=== PATIENT | male | born 1940 | race Caucasian/White ===

== ENCOUNTER 2022-07-02 17:26 | Inpatient (IN) ==
[2022-07-02 19:12] LABS: Basophils % 0.2 % (0.0-0.8); Eosinophils # 0.1 10*3/uL (0.0-0.87); Eosinophils % 1.1 % (0.00-10.9); Hematocrit 36.7 VOL% (42.0-52.0); Hemoglobin 12.1 GM/DL (14.0-18.0); Immature Granulocytes % 0.3 %; Immature Granulocytes Absolute 0.03 #; Lymphocytes # 1.3 10*3/uL (1.4-4.0); Lymphocytes % 12.1 % (21.2-54.2); Mean Corpuscular Volume 95.6 FL (87-102); Mean Platelet Volume 11.7 FL (9.6-12.0); Monocytes # 1.1 10*3/uL (0.11-0.8); Monocytes % 10.2 % (1.7-12.7); Neutrophils % 76.1 % (38.7-73.9); Platelet Count 109 T/CUMM (130-400); Red Blood Count 3.84 MC/CUMM (3.8-5.5); Red Cell Distribution Width 14.6 % (9.3-17.3); White Blood Count 10.5 T/CUMM (4-12)
[2022-07-02 19:20] LABS: INR 1.2; PT Patient Result 13.2 SECS (10.1-12.1)
[2022-07-02 19:25] LABS: Albumin 3.1 G/DL (3.4-5.0); Bilirubin,Total 1.4 MG/DL (0.20-1.00); Calcium 9.5 MG/DL (8.5-10.1); Osmolality,Calculated 288.3 MOS/KG (273-304); Potassium 4.2 MMOL/L (3.5-5.1); Total Protein 6.8 G/DL (6.4-8.2)
[2022-07-02] MEDS ORDERED: ACETAMINOPHEN 500 MG TABLET ONE (20:58)
[2022-07-02] MEDS ORDERED: ACETAMINOPHEN 500 MG TABLET PO STA (21:11)
[2022-07-02] MEDS ORDERED: GLUCAGON 1 MG VIAL IM PRN (21:16)
[2022-07-02] MEDS ORDERED: ONDANSETRON 4 MG/2 ML VIAL IV PRN (21:16)
[2022-07-02] MEDS ORDERED: DEXTROSE 10% 250 ML BAG IV PRN (21:21)
[2022-07-02] MEDS ORDERED: SODIUM CHLORIDE 0.9% 1,000 ML IV SCH (21:30)
[2022-07-03 00:25] LABS: Bacteria,Urine Occasional /HPF (Few); Hyaline Casts,Urine 15 /LPF (0-3); Mucus,Urine Few /LPF (Occasional); RBC,Urine 79 /HPF (0-4)
[2022-07-03 00:26] LABS: Glucose,Urine (UA) Negative (Negative); Ketones,Urine Negative (Negative); Protein,Urine 30 mg/dL (Negative); Urine Appearance SL CLOUDY (Clear); Urine Color Yellow (Yellow); Urine pH 6.5 (4.5-8.0)
[2022-07-03 00:27] LABS: Bilirubin,Urine Negative (Negative); Blood, Urine Moderate mg/dL (Negative); Nitrite,Urine Negative (Negative)
[2022-07-03 01:44] LABS: INR 1.2; PT Patient Result 13.5 SECS (10.1-12.1)
[2022-07-03 02:07] LABS: Basophils % 0.2 % (0.0-0.8); Eosinophils # 0.1 10*3/uL (0.0-0.87); Hematocrit 35.9 VOL% (42.0-52.0); Hemoglobin 11.9 GM/DL (14.0-18.0); Immature Granulocytes % 0.3 %; Immature Granulocytes Absolute 0.03 #; Lymphocytes # 1.3 10*3/uL (1.4-4.0); Lymphocytes % 13.5 % (21.2-54.2); Mean Corpuscular HGB Conc 33.1 GM/DL (32-36); Mean Corpuscular Volume 95.5 FL (87-102); Mean Platelet Volume 11.6 FL (9.6-12.0); Monocytes # 0.9 10*3/uL (0.11-0.8); Monocytes % 9.5 % (1.7-12.7); Neutrophils % 75.5 % (38.7-73.9); Platelet Count 120 T/CUMM (130-400); Red Blood Count 3.76 MC/CUMM (3.8-5.5); Red Cell Distribution Width 14.5 % (9.3-17.3); White Blood Count 9.5 T/CUMM (4-12)
[2022-07-03 02:22] LABS: Bilirubin,Total 1.4 MG/DL (0.20-1.00); Calcium 9.3 MG/DL (8.5-10.1); Osmolality,Calculated 285.4 MOS/KG (273-304); Potassium 4.1 MMOL/L (3.5-5.1); Total Protein 6.6 G/DL (6.4-8.2)
[2022-07-03] MEDS ORDERED: VANCOMYCIN INJ 1,000 MG in SODIUM CHLORIDE 0.9% 250 ML IV ONE (06:48)
[2022-07-03] MEDS: LACTATED RINGERS 1,000 ML IV SCH ×3 (07:35→23:46)
[2022-07-03] MEDS ORDERED: hydrALAZINE 20 MG/1 ML VIAL IV PRN (09:23)
[2022-07-03 10:01] LABS: Folate 8.64 NG/ML (5.38-24.0)
[2022-07-03] MEDS: PANTOPRAZOLE 40 MG TABLET PO SCH (10:03)
[2022-07-03] MEDS ORDERED: fentaNYL 100 MCG/2 ML VIAL ONE (11:33)
[2022-07-03] MEDS ORDERED: propofoL 200 MG/20 ML VIAL IV ONE (11:33)
[2022-07-03] MEDS ORDERED: LIDOCAINE 2% 5 ML VIAL ONE (11:33)
[2022-07-03] MEDS ORDERED: ROCURONIUM 50 MG/5 ML VIAL IV ONE (11:34)
[2022-07-03] MEDS ORDERED: ONDANSETRON 4 MG/2 ML VIAL ONE (11:34)
[2022-07-03] MEDS ORDERED: SEVOFLURANE 1 UNIT/15 MINUTE INH ONE ×3 (11:34→13:58)
[2022-07-03] MEDS ORDERED: KETAMINE 500 MG/10 ML VIAL ONE (11:35)
[2022-07-03] MEDS ORDERED: BACITRACIN OINT 0.9 GM PACK TOP ONE (12:03)
[2022-07-03] MEDS ORDERED: PHENYLEPHRINE 1 MG/10 ML SYRINGE IV ONE (13:03)
[2022-07-03] MEDS ORDERED: LACTATED RINGERS 1,000 ML IV ONE (13:12)
[2022-07-03] MEDS ORDERED: MAGNESIUM HYDROXIDE SUSP 30 ML UDCUP PO PRN (13:24)
[2022-07-03] MEDS ORDERED: MORPHINE 2 MG/1 ML SYRINGE IV PRN ×2 (13:25)
[2022-07-03] MEDS ORDERED: TRANEXAMIC ACID 1,000 MG/10 ML VIAL ONE (13:41)
[2022-07-03] MEDS ORDERED: NEOSTIGMINE 10 MG/10 ML VIAL ONE (13:59)
[2022-07-03] MEDS ORDERED: GLYCOPYRROLATE 0.4 MG/2 ML VIAL ONE (13:59)
[2022-07-03] MEDS: KETOROLAC 15 MG/1 ML VIAL IV SCH ×2 (15:58→21:03)
[2022-07-03] MEDS: MIDODRINE 5 MG TABLET PO SCH ×2 (16:41→21:05)
[2022-07-03] MEDS: DOCUSATE SODIUM 100 MG CAPSULE PO SCH (21:05)
[2022-07-03] MEDS: MEMANTINE 10 MG TABLET PO SCH (21:05)
[2022-07-03] MEDS: ATORVASTATIN 20 MG TABLET PO SCH (21:05)
[2022-07-04] MEDS: KETOROLAC 15 MG/1 ML VIAL IV SCH (01:26)
[2022-07-04 04:47] LABS: Basophils % 0.1 % (0.0-0.8); Eosinophils % 0.4 % (0.00-10.9); Hematocrit 32.7 VOL% (42.0-52.0); Hemoglobin 10.5 GM/DL (14.0-18.0); Immature Granulocytes % 0.2 %; Immature Granulocytes Absolute 0.02 #; Lymphocytes # 1.4 10*3/uL (1.4-4.0); Lymphocytes % 14.4 % (21.2-54.2); Mean Corpuscular HGB Conc 32.1 GM/DL (32-36); Mean Platelet Volume 12.1 FL (9.6-12.0); Monocytes # 1.2 10*3/uL (0.11-0.8); Monocytes % 12.3 % (1.7-12.7); Neutrophils % 72.6 % (38.7-73.9); Platelet Count 111 T/CUMM (130-400); Red Blood Count 3.37 MC/CUMM (3.8-5.5); Red Cell Distribution Width 14.4 % (9.3-17.3); White Blood Count 9.4 T/CUMM (4-12)
[2022-07-04 05:12] LABS: Calcium 8.6 MG/DL (8.5-10.1); Osmolality,Calculated 290.7 MOS/KG (273-304); Potassium 4.4 MMOL/L (3.5-5.1)
[2022-07-04 05:13] LABS: Risk Ratio 2.83; VLDL Cholesterol 14.2 MG/DL
[2022-07-04] MEDS ORDERED: FONDAPARINUX 2.5 MG/0.5 ML SYRINGE SUBCUT SCH (08:00)
[2022-07-04] MEDS: FERRIC GLUCONATE COMPLEX 125 MG in SODIUM CHLORIDE 0.9% 100 ML IV SCH (08:59)
[2022-07-04] MEDS: DOCUSATE SODIUM 100 MG CAPSULE PO SCH ×2 (09:00→21:20)
[2022-07-04] MEDS: MEMANTINE 10 MG TABLET PO SCH ×2 (09:00→21:19)
[2022-07-04] MEDS: MIDODRINE 5 MG TABLET PO SCH ×3 (09:00→21:20)
[2022-07-04] MEDS: PANTOPRAZOLE 40 MG TABLET PO SCH (09:00)
[2022-07-04] MEDS: ATORVASTATIN 20 MG TABLET PO SCH (21:20)
[2022-07-05 04:53] LABS: Basophils % 0.3 % (0.0-0.8); Eosinophils # 0.1 10*3/uL (0.0-0.87); Eosinophils % 0.5 % (0.00-10.9); Hematocrit 32.3 VOL% (42.0-52.0); Hemoglobin 10.5 GM/DL (14.0-18.0); Immature Granulocytes % 0.5 %; Immature Granulocytes Absolute 0.05 #; Lymphocytes # 1.6 10*3/uL (1.4-4.0); Lymphocytes % 15.3 % (21.2-54.2); Mean Corpuscular HGB Conc 32.5 GM/DL (32-36); Mean Corpuscular Volume 96.4 FL (87-102); Mean Platelet Volume 11.7 FL (9.6-12.0); Monocytes # 1.3 10*3/uL (0.11-0.8); Monocytes % 12.8 % (1.7-12.7); Neutrophils % 70.6 % (38.7-73.9); Platelet Count 130 T/CUMM (130-400); Red Blood Count 3.35 MC/CUMM (3.8-5.5); Red Cell Distribution Width 14.4 % (9.3-17.3); White Blood Count 10.2 T/CUMM (4-12)
[2022-07-05 05:06] LABS: Calcium 9.1 MG/DL (8.5-10.1); Osmolality,Calculated 281.7 MOS/KG (273-304); Potassium 3.9 MMOL/L (3.5-5.1)
[2022-07-05] MEDS: MEMANTINE 10 MG TABLET PO SCH ×2 (09:30→20:55)
[2022-07-05] MEDS: DOCUSATE SODIUM 100 MG CAPSULE PO SCH ×2 (09:30→20:55)
[2022-07-05] MEDS: MIDODRINE 5 MG TABLET PO SCH ×3 (09:30→20:55)
[2022-07-05] MEDS: PANTOPRAZOLE 40 MG TABLET PO SCH (09:30)
[2022-07-05] MEDS: APIXABAN 2.5 MG TABLET PO SCH ×2 (09:31→20:55)
[2022-07-05] MEDS: FERRIC GLUCONATE COMPLEX 125 MG in SODIUM CHLORIDE 0.9% 100 ML IV SCH (10:50)
[2022-07-05] MEDS ORDERED: FOSFOMYCIN 3 GM PACK PO ONE (11:00)
[2022-07-05] MEDS ORDERED: ZINC OXIDE PASTE 113 GM TUBE TOP PRN (15:24)
[2022-07-05] MEDS: ATORVASTATIN 20 MG TABLET PO SCH (20:55)
[2022-07-06 05:40] LABS: Basophils % 0.4 % (0.0-0.8); Eosinophils # 0.1 10*3/uL (0.0-0.87); Eosinophils % 1.4 % (0.00-10.9); Hematocrit 30.9 VOL% (42.0-52.0); Hemoglobin 10.1 GM/DL (14.0-18.0); Immature Granulocytes % 0.5 %; Immature Granulocytes Absolute 0.04 #; Lymphocytes # 1.4 10*3/uL (1.4-4.0); Lymphocytes % 18.6 % (21.2-54.2); Mean Corpuscular HGB Conc 32.7 GM/DL (32-36); Mean Corpuscular Volume 96.3 FL (87-102); Mean Platelet Volume 11.1 FL (9.6-12.0); Monocytes % 12.9 % (1.7-12.7); Neutrophils % 66.2 % (38.7-73.9); Platelet Count 127 T/CUMM (130-400); Red Blood Count 3.21 MC/CUMM (3.8-5.5); White Blood Count 7.7 T/CUMM (4-12)
[2022-07-06 07:21] VITALS: BP 155/76
[2022-07-06] MEDS: APIXABAN 2.5 MG TABLET PO SCH (08:01)
[2022-07-06] MEDS: DOCUSATE SODIUM 100 MG CAPSULE PO SCH (08:01)
[2022-07-06] MEDS: PANTOPRAZOLE 40 MG TABLET PO SCH (08:01)
[2022-07-06] MEDS: MIDODRINE 5 MG TABLET PO SCH (08:01)
[2022-07-06] MEDS: MEMANTINE 10 MG TABLET PO SCH (08:01)
[2022-07-06] MEDS: FERRIC GLUCONATE COMPLEX 125 MG in SODIUM CHLORIDE 0.9% 100 ML IV SCH (08:02)
== END 2022-07-06 11:13 | disposition swing bed (61) | DRG 522 ==
LOC: N.ED 17:26 → N.3E 21:15
PROVIDERS: ADMIT Internal Medicine; ATTEND Internal Medicine